=== PATIENT | female | born 1985 | race African-American/Black ===

== ENCOUNTER 2017-01-09 10:19 | Day surgery (SDC) | payer OTHER ==
[~2017-01-09] VITALS: Ht 175.3 cm; Wt 67.5 kg
[2017-01-09 11:39] VITALS: BP 105/69; PULSE 94; TEMP 98.2
[2017-01-09] MEDS ORDERED: PHENERGAN 25 TA25 MG (11:55)
[2017-01-09] MEDS ORDERED: PEPTO BISM262 MG/15 PO (11:57)
[2017-01-09] MEDS ORDERED: GAS-X ULTRA ST180 MG PO (11:58)
[2017-01-09] MEDS ORDERED: DRAMAMINE 50MG50 MG PO (11:59)
[2017-01-09 12:55] VITALS: BP 117/70; PULSE 84; TEMP 98.5
[2017-01-09 13:35] VITALS: BP 115/72; PULSE 79
[2017-01-09 13:45] VITALS: BP 109/69; PULSE 80
== END 2017-01-09 14:20 | disposition home or self-care (01) ==
LOC: SDCO 10:19
DX: K50.111 Crohn's disease of large intestine with rectal bleeding (principal); K56.60 Unspecified intestinal obstruction; I73.00 Raynaud's syndrome without gangrene; K52.9 Noninfective gastroenteritis and colitis, unspecified; D50.9 Iron deficiency anemia, unspecified; K21.9 Gastro-esophageal reflux disease without esophagitis; K29.50 Unspecified chronic gastritis without bleeding
CPT/HCPCS: J2250; J2405; J3010; J7030